=== PATIENT | female | born 1990 | race Caucasian/White ===

== ENCOUNTER 2020-08-23 16:32 | Inpatient (IN) | payer BC ==
[2020-08-23] MEDS ORDERED: Sodium Chloride 0.9% 10 ML Syringe FLUSH PRN (16:39)
[2020-08-23] MEDS ORDERED: Ondansetron 4 MG/2 ML SDV IVPUSH PRN (16:39)
[2020-08-23] MEDS ORDERED: Nalbuphine 10 MG/1 ML Vial IVPUSH PRN (16:39)
[2020-08-23] MEDS ORDERED: Oxytocin/Lactated Ringers 10 UNIT/1,000 ML BAG IV SCH ×2 (16:45)
[2020-08-23] MEDS: Lactated Ringers 1,000 ML IV SCH ×3 (17:40→20:06)
[2020-08-23] MEDS ORDERED: Bupivacaine/fentaNYL/NS 100 ML Bag EPIDUR PRN (18:07)
[2020-08-23] MEDS ORDERED: ePHEDrine 50 MG/ML SDV IVPUSH PRN (18:07)
[2020-08-23] MEDS ORDERED: diphenhydrAMINE 50 MG/ML SDV IVPUSH PRN (18:07)
[2020-08-23] MEDS ORDERED: fentaNYL 100 MCG/2 ML SDV EPIDUR PRN (18:07)
--- NOTE | 2020-08-23 18:18 | PCM.PREANE ---
Preanesthetic Assessment - Procedure Proposed Procedure: Continuous labor epidural - Review of Systems General: No Symptoms Pulmonary: No Symptoms Cardiovascular: No Symptoms Gastrointestinal: No Symptoms Neurological: No Symptoms Other: Reports: None - Physical Assessment Vital Signs: Last Vital Signs Temp 97.4 F 08/23/20 17:53 Pulse 77 08/23/20 17:53 Resp 18 08/23/20 17:53 BP 135/89 08/23/20 17:53 Pulse Ox 98 08/23/20 17:53 Height: 1.65 m Weight: 109.452 kg ASA Class: 2 Mental Status: Alert & Oriented x3 Airway Class: Mallampati = 2 Dentition: Reports: Normal Dentition Thyro-Mental Finger Breadths: 3 Mouth Opening Finger Breadths: 3 ROM/Head Extension: Full Lungs: Clear to Auscultation, Normal Respiratory Effort Cardiovascular: Regular Rate, Regular Rhythm - Lab Values: Laboratory Last Values WBC 14.07 K/mm3 (3.98-10.04) H 08/23/20 17:05 RBC 4.77 M/mm3 (3.98-5.22) 08/23/20 17:05 Hgb 14.0 gm/dl (11.2-15.7) D 08/23/20 17:05 Hct 40.7 % (34.1-44.9) 08/23/20 17:05 MCV 85.3 fl (79.4-94.8) 08/23/20 17:05 MCH 29.4 pg (25.6-32.2) 08/23/20 17:05 MCHC 34.4 g/dl (32.2-35.5) 08/23/20 17:05 RDW Std Deviation 41.6 fL (36.4-46.3) 08/23/20 17:05 Plt Count 181 K/mm3 (182-369) L 08/23/20 17:05 MPV 12.7 fl (9.4-12.3) H 08/23/20 17:05 Neut % (Auto) 76.3 % (34.0-71.1) H 08/23/20 17:05 Lymph % (Auto) 16.9 % (19.3-51.7) L 08/23/20 17:05 [place] % (Auto) 6.5 % (4.7-12.5) 08/23/20 17:05 Eos % (Auto) 0.1 (0.7-5.8) L 08/23/20 17:05 Baso % (Auto) 0.1 % (0.1-1.2) 08/23/20 17:05 Neut # (Auto) 10.72 K/mm3 (1.56-6.13) H 08/23/20 17:05 Lymph # (Auto) 2.38 K/mm3 (1.18-3.74) 08/23/20 17:05 [place] # (Auto) 0.92 K/mm3 (0.24-0.36) H 08/23/20 17:05 Eos # (Auto) 0.01 K/mm3 (0.04-0.36) L 08/23/20 17:05 Baso # (Auto) 0.02 K/mm3 (0.01-0.08) 08/23/20 17:05 POC Glucose 104 mg/dL (70-105) 08/23/20 17:47 - Allergies Allergies/Adverse Reactions: Allergies Allergy/AdvReac Type Severity Reaction Status Date / Time chemical opening machine 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 - HOME MEDS Home Medications: Home Meds Insulin Detemir [Levemir] 14 units SQ BEDTIME 08/23/20 [History] Pnv No.95/Ferrous Fum/Folic AC [ Vitamins Tablet] 1 tab PO DAILY 08/23/20 [History] - CURRENT (IN HOUSE) MEDS Current Meds: Current Medications Diphenhydramine HCl (Benadryl) 25 mg IVPUSH Q6H PRN PRN Reason: pruritis Ephedrine Sulfate (Ephedrine Sulfate) 5 mg IVPUSH ASDIRECTED PRN PRN Reason: Hypotension Fentanyl (Sublimaze) 100 mcg EPIDUR Q3H PRN PRN Reason: Pain Fentanyl/Bupivacaine HCl (Fentanyl/Bupivacaine/Ns 2 Mcg-0.125% 100 Ml) 100 ml EPIDUR ASDIRECTED PRN PRN Reason: Pain Oxytocin/Lactated Ringer's (Pitocin In Lr 10 Units/1,000 Ml) 10 unit in 1,000 mls @ 500 mls/hr IV .CONTINUOUS GIOVANA Oxytocin/Lactated Ringer's (Pitocin In Lr 10 Units/1,000 Ml) 10 unit in 1,000 mls @ 12 mls/hr IV TITRATE GIOVANA; Protocol Lactated Ringer's (Ringers, Lactated) 1,000 mls @ 100 mls/hr IV ASDIRECTED GIOVANA Nalbuphine HCl (Nubain) 10 mg IVPUSH Q2H PRN PRN Reason: Pain Ondansetron HCl (Zofran) 4 mg IVPUSH Q4H PRN PRN Reason: Nausea/Vomiting Sodium Chloride (Saline Flush) 10 ml FLUSH ASDIRECTED PRN PRN Reason: Keep Vein Open
--- NOTE | 2020-08-23 19:27 | PCM.LDHP ---
L&D History of Present Illness - General Date of Service: 08/23/20 Admit Problem/Dx: Patient Status Order with Admit Dx/Problem 08/23/20 16:39 Patient Status [ADT] Routine Admission Diagnosis/Problem Admission Diagnosis/Problem 08/23/20 19:15 Chapis is a 30-year-old 1 para 0 white female admitted on the evening of 08/23/2020 at 40-5/7 weeks gestational age with an KEVIN of 08/18/2020 with S ROM, active labor with advanced cervical dilation. Source of Information: Patient History Limitations: Reports: No Limitations - History of Present Illness Introduction:: Chapis is a 30-year-old 1 para 0 white female admitted on the evening of 08/23/2020 at 40-5/7 weeks gestational age with an KEVIN of 08/18/2020 with SROM, active labor with advanced cervical dilation. She reports having started leaking fluid at approximately 1630 hrs. today. Is continued until the present time. She has started having contractions which are moderate to strong at this time. Cervix on my evaluation shows 5 cm dilation, 100% effaced, 0 station, anterior, clear amniotic fluid, very soft and stretchy. heart tones are generally reassuring. Patient is just received her epidural and is receiving good results from this. 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 Patient had menarche at approximately age 13. Cycles every 30 days. No control at the time of conception. Last menstrual period was 11/09/2019. Her KEVIN is based upon an early ultrasound which correlated very well with her LMP dating. 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 course: Patient was initially seen for this 02/12/2020 at which time she was approximately 13 weeks and 5 days. Ultrasound at that time supported her LMP dating. She was seen on a regular basis throughout the . She was diagnosed with gestational diabetes and initially was attempted to be controlled with diet. She ended up on insulin and has been using Levemir with most recent dosage at 14 units subcu nightly. Blood sugars have been within normal limits. growth has been appropriate. She is not had any major concerns regarding . She has been evaluated with weekly biophysical profiles which have been normal. The patient's weight gain was from a pregravid weight of 245 to a weight of 240.6 pounds at her last visit. Signs have been stable throughout the . Fundal height growth has been appropriate for dates. She is group B strep negative. She plans to breast- feed. She had her flu shot on 06/23/2020. Her Tdap was given on 06/09/2020. She is rubella immune. Hepatitis B immunizations were given in 2003. Ultrasound clinic done on 08/18/2020 showed an estimated weight of 3908 g consistent with 8 pounds 10 ounces. Patient has been informed of this and potential increased risk for shoulder dystocia and need for section. She is interested in proceeding with labor. Allergies: None Medications: 1. Levemir insulin subcutaneous�14 units nightly 2. vitamins daily Past medical history: 1. Infertility with treatment with Humira, Ovidrel shots and evaluation with hysterosalpingogram. Past surgical history: 1. [place] teeth removal. Family history: Mother is secondary to complications of throat cancer. Diagnosis at age 50, at age 60. Father is secondary to H2 gas accident exposure. Sisters alive and well. Maternal grandmother is secondary to cervical cancer at age 70. Maternal grandfather is secondary to lung cancer. Paternal grandmother is secondary to heart disease at age 90 with a history of breast cancer also. Paternal grandfather from lung cancer at age 80. There is no known family history of bleeding or clotting disorders, anesthesia related issues or related problems. One paternal aunt did have breast cancer at 50 years of age plus. Social history: Patient is . is Cuong Walker. He works in [employer] at the [employer] as a [employer]. She works at [employer] here in [place], [place]. She denies any significant muscle alcohol, drugs or tobacco. She and her live in [place]. Review of systems: In general patient has no complaints. She does report leaking fluid consistent with SROM. Baby has been active. And she has having some contractions. Skin: Negative Lungs: No infectious symptoms or shortness of breath Cardiovascular: No chest pain or exercise intolerance Breasts: No lumps, changes in size, pain, dimpling, discharge or axillary or supraclavicular concerns. Changes associated with . GI: Negative : Body habitus changes consistent with . Musculoskeletal: Negative Neurological: Negative Physical exam: In general the patient is well-developed, well-nourished, pleasant female of stated age in no acute distress. Evaluation in clinic on 08/18/2020 showed her blood pressure was 118/72. Weight was 240.6 with pregravid weight of 245 pounds. Pregravid BMI was 40.8. Height is 5 feet 5 inches. heart rate is 180 bpm. Cervix at that time was 3+ centimeters, 90% effaced, mid position, -2 station and soft. Skin is warm dry without lesions. HEENT, neck and back within normal limits. Lungs are clear with good breath sounds in all lung bass. Cardiovascular exam shows regular and rhythm without murmurs. Breast exam was performed first visit and not repeated at this time. Abdomen is gravid with last fundal height at 40+ centimeters. Baby in vertex presentation.. Genital per digital evaluation as described above. Extremities and neurological exam are grossly within normal limits. 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 Social & Family History - Family History Family Medical History: No Pertinent Family History - Caffeine Use Caffeine Use: Reports: None - Recreational Drug Use Recreational Drug Use: No H&P Review of Systems - Review of Systems: Review Of Systems: See Below L&D Exam - Exam Exam: See Below - Vital Signs Vital Signs: Last Vital Signs Temp 36.3 C 08/23/20 17:53 Pulse 77 08/23/20 17:53 Resp 18 08/23/20 17:53 BP 135/89 08/23/20 17:53 Pulse Ox 98 08/23/20 17:53 Weight: 109.452 kg - Patient Data Lab Results Last 24 hrs: Laboratory Results - last 24 hr 08/23/20 08/23/20 08/23/20 Range/Units 17:05 17:05 17:15 WBC 14.07 H (3.98-10.04) K/mm3 RBC 4.77 (3.98-5.22) M/mm3 Hgb 14.0 D (11.2-15.7) gm/dl Hct 40.7 (34.1-44.9) % MCV 85.3 (79.4-94.8) fl MCH 29.4 (25.6-32.2) pg MCHC 34.4 (32.2-35.5) g/dl RDW Std Deviation 41.6 (36.4-46.3) fL Plt Count 181 L (182-369) K/mm3 MPV 12.7 H (9.4-12.3) fl Neut % (Auto) 76.3 H (34.0-71.1) % Lymph % (Auto) 16.9 L (19.3-51.7) % [place] % (Auto) 6.5 (4.7-12.5) % Eos % (Auto) 0.1 L (0.7-5.8) Baso % (Auto) 0.1 (0.1-1.2) % Neut # (Auto) 10.72 H (1.56-6.13) K/mm3 Lymph # (Auto) 2.38 (1.18-3.74) K/mm3 [place] # (Auto) 0.92 H (0.24-0.36) K/mm3 Eos # (Auto) 0.01 L (0.04-0.36) K/mm3 Baso # (Auto) 0.02 (0.01-0.08) K/mm3 POC Glucose (70-105) mg/dL RPR Non-reactive (NONREACTIVE) SARS-CoV-2 RNA (CESAR) Negative (NEGATIVE) 08/23/20 Range/Units 17:47 WBC (3.98-10.04) K/mm3 RBC (3.98-5.22) M/mm3 Hgb (11.2-15.7) gm/dl Hct (34.1-44.9) % MCV (79.4-94.8) fl MCH (25.6-32.2) pg MCHC (32.2-35.5) g/dl RDW Std Deviation (36.4-46.3) fL Plt Count (182-369) K/mm3 MPV (9.4-12.3) fl Neut % (Auto) (34.0-71.1) % Lymph % (Auto) (19.3-51.7) % [place] % (Auto) (4.7-12.5) % Eos % (Auto) (0.7-5.8) Baso % (Auto) (0.1-1.2) % Neut # (Auto) (1.56-6.13) K/mm3 Lymph # (Auto) (1.18-3.74) K/mm3 [place] # (Auto) (0.24-0.36) K/mm3 Eos # (Auto) (0.04-0.36) K/mm3 Baso # (Auto) (0.01-0.08) K/mm3 POC Glucose 104 (70-105) mg/dL RPR (NONREACTIVE) SARS-CoV-2 RNA (CESAR) (NEGATIVE) Result Diagrams: 08/23/20 17:05 Problem List Initiated/Reviewed/Updated: Yes Orders Last 24hrs: Active Orders 24 hr Category Date Time Status Patient Status [ADT] Routine ADT 08/23/20 16:39 Active Activity as Tolerated [RC] PFP Care 08/23/20 16:39 Active Communication Order [RC] ASDIRECTED Care 08/23/20 16:39 Active Heart Tones [RC] ASDIRECTED Care 08/23/20 16:39 Active Non Stress Test [RC] PER UNIT ROUTINE Care 08/23/20 16:39 Active Notify Provider [RC] ASDIRECTED Care 08/23/20 18:07 Active Notify Provider [RC] PFP Care 08/23/20 16:39 Active Notify Provider [RC] PRN Care 08/23/20 16:39 Active Peripheral IV Care [RC] . DIRECTED Care 08/23/20 16:39 Active Pump Management, Intrathecal [RC] ASDIRECTED Care 08/23/20 16:40 Active Urinary Catheter Assessment [RC] ASDIRECTED Care 08/23/20 16:39 Active Vital Signs [RC] 03,09,15,21 Care 08/23/20 16:39 Active Regular Diet [DIET] Diet 08/23/20 Dinner Active Bupivacaine/fentaNYL/NS [fentaNYL/Bupivacaine/NS 2 MCG- Med 08/23/20 18:07 Active 0.125% 100 ML] 100 ml EPIDUR ASDIRECTED PRN Lactated Ringers [Ringers, Lactated] 1,000 ml Med 08/23/20 16:45 Active IV ASDIRECTED Nalbuphine [Nubain] Med 08/23/20 16:39 Active 10 mg IVPUSH Q2H PRN Ondansetron [Zofran] Med 08/23/20 16:39 Active 4 mg IVPUSH Q4H PRN Oxytocin/Lactated Ringers [Pitocin in LR 10 Units/1,000 Med 08/23/20 16:45 Active ML] 10 unit in 1,000 ml IV .CONTINUOUS Oxytocin/Lactated Ringers [Pitocin in LR 10 Units/1,000 Med 08/23/20 16:45 Active ML] 10 unit in 1,000 ml IV TITRATE Sodium Chloride 0.9% [Saline Flush] Med 08/23/20 16:39 Active 10 ml FLUSH ASDIRECTED PRN diphenhydrAMINE [Benadryl] Med 08/23/20 18:07 Active 25 mg IVPUSH Q6H PRN ePHEDrine [ePHEDrine sulfate] Med 08/23/20 18:07 Active 5 mg IVPUSH ASDIRECTED PRN fentaNYL [Sublimaze] Med 08/23/20 18:07 Active 100 mcg EPIDUR Q3H PRN Electronic Heart Tones Ext w TOCO [WOMSER] Oth 08/23/20 16:39 Ordered Routine Electronic Heart Tones Internal [WOMSER] Per Unit Oth 08/23/20 16:39 Ordered Routine Peripheral IV Insertion Adult [OM.PC] Routine Oth 08/23/20 16:39 Ordered Resuscitation Status Routine Resus Stat 08/23/20 16:39 Ordered Medication Orders Diphenhydramine HCl (Benadryl) 25 mg IVPUSH Q6H PRN PRN Reason: pruritis Ephedrine Sulfate (Ephedrine Sulfate) 5 mg IVPUSH ASDIRECTED PRN PRN Reason: Hypotension Fentanyl (Sublimaze) 100 mcg EPIDUR Q3H PRN PRN Reason: Pain Last Admin: 08/23/20 18:22 Dose: 100 mcg Documented by: LADARIUS Fentanyl/Bupivacaine HCl (Fentanyl/Bupivacaine/Ns 2 Mcg-0.125% 100 Ml) 100 ml EPIDUR ASDIRECTED PRN PRN Reason: Pain Last Admin: 08/23/20 18:22 Dose: 100 ml Documented by: LADARIUS Oxytocin/Lactated Ringer's (Pitocin In Lr 10 Units/1,000 Ml) 10 unit in 1,000 mls @ 500 mls/hr IV .CONTINUOUS GIOVANA Oxytocin/Lactated Ringer's (Pitocin In Lr 10 Units/1,000 Ml) 10 unit in 1,000 mls @ 12 mls/hr IV TITRATE GIOVANA; Protocol Lactated Ringer's (Ringers, Lactated) 1,000 mls @ 100 mls/hr IV ASDIRECTED GIOVANA Last Admin: 08/23/20 18:25 Dose: 999 mls/hr Documented by: Infusion: 08/23/20 18:25 Dose: 999 mls/hr Documented by: Admin: 08/23/20 17:40 Dose: 999 mls/hr Documented by: LADARIUS Nalbuphine HCl (Nubain) 10 mg IVPUSH Q2H PRN PRN Reason: Pain Ondansetron HCl (Zofran) 4 mg IVPUSH Q4H PRN PRN Reason: Nausea/Vomiting Sodium Chloride (Saline Flush) 10 ml FLUSH ASDIRECTED PRN PRN Reason: Keep Vein Open Assessment/Plan Comment:: 1. 40-5/7-week intrauterine , SROM, clear amniotic fluid, active labor with advanced cervical dilation 2. Gestational diabetes mellitus with blood sugars well controlled on subcu insulin. Patient's weight management in has been excellent. testing with weekly biophysical profiles have been normal. 3. Group B strep screen negative. 4. Other risk factors include obesity. 5. Patient has had an epidural placed for labor analgesia 6. Patient has had her flu shot and her Tdap immunization. She has had a hepatitis B immunizations also. She is rubella immune. 7. Patient plans to breast-feed. Plan: 1. Anticipate normal spontaneous vaginal delivery 2. Admission labs have included Covid�19 testing, CBC, RPR. 3. Support breast-feeding plan 4. Epidural for labor analgesia 5. Routine labor care. Patient is aware of her increased risk for shoulder dystocia and for having need for section
[2020-08-24] MEDS ORDERED: Lidocaine 1.5% with EPINEPHrine 1:200,000 5 ML Amp ONE
--- NOTE | 2020-08-24 00:59 | PCM.SN.2 ---
- Free Text/Narrative Note: Delivery note: Chapis is a 30-year-old 1 now para 1-0-0-1 white female admitted on the evening of 08/23/2020 at 40-5/7 weeks gestational age with an KEVIN of 08/18/2020 with SROM, active labor with advanced cervical dilation. She reported having started leaking fluid at approximately 1630 hrs. on 08/23/2020. She started having contractions which are moderate to strong at this time. Cervix on my evaluation on admission showed 5 cm dilation, 100% effaced, 0 station, anterior, clear amniotic fluid, very soft and stretchy. heart tones were generally reassuring. Patient received epidural for labor analgesia. She progressed rapidly to complete cervical dilation by approximately 2100 hrs. She pushed for approximately 3 hours and I am minutes. At that time discussion was held with patient as to assistance with vacuum extraction, its risks, benefits, alternatives of care including continued pushing, section. She appeared to understand the risk and benefits and wished to proceed with VAC extraction as she was becoming fatigued. Vacuum extractor was applied and over the course of 2 contractions baby delivered without concerns. Shoulders delivered without any problems with gentle downward traction. The baby was a female delivered at 0016 hours on 08/24/2020 in a direct occiput anterior position. She weighed 3770 g (8 pounds 5.0 ounces), had Apgars of 8 and 9 and was 21.0 inches in length. Baby was then placed on mom's abdomen and dried with warm blanket. Nose and mouth were bulb suction. Pitocin was started at 500 cc an hour to facilitate increase in uterine tone and decrease likelihood of bleeding. The umbilical cord was allowed to pulsate for 2 to 3 minutes. The umbilical cord was clamped x2 and then cut by the baby's father Cuong. Cord blood was obtained. The umbilical cord had 3 vessels. The perineum was inspected and found to have a third-degree laceration. The epithelium of the lower perineal body was reapproximated with 3 continuous vertical mattress sutures of 3-0 Monocryl. The anal sphincter was then identified with the chin brought to the midline with Allis clamps. A [id number] suture was placed into the sphincter muscle to reapproximate it midline. The capsule was then oversewn around this with interrupted sutures x2 again using 3-0 Monocryl. The remainder of the laceration was repaired in a routine episiotomy fashion. No fourth degree laceration was noted. Minimal bleeding was encountered. The placenta delivered spontaneously at 0029 hours in a [place] presentation. There was a marginal insertion of the umbilical cord. It appeared to deliver intact and complete and was discarded per patient desire. Patient plans to breast-feed. Estimated blood loss was 200 cc. Condition: Good.
[2020-08-24] MEDS ORDERED: Benzocaine/Menthol 20%-0.5% Spray 56 GM Canister TOP PRN (01:08)
[2020-08-24] MEDS ORDERED: Acetaminophen 325 MG Tab PO PRN (01:08)
[2020-08-24] MEDS: Witch Hazel Medicated Pads 40/Jar TOP PRN ×2 (01:30→20:12)
[2020-08-24] MEDS: Ibuprofen 600 MG Tab PO PRN ×3 (02:12→20:03)
--- NOTE | 2020-08-24 07:57 | PCM.SN.2 ---
- Free Text/Narrative Note: note: Patient is doing well in the period. Minimal lochia, voiding well, ambulated without problems. Nursing without concerns. Patient is afebrile, vital signs are stable Abdomen is flat, soft, uterus is below the umbilicus and is firm and nontender. Legs are nontender. Assessment: recovery going well. Plan: Routine care. Patient be discharged home within the next 24-48 hours.
[2020-08-24] MEDS: Prenatal Multivitamin with Calcium/Folic Acid/Iron Tab PO SCH (09:52)
[2020-08-24] MEDS: Docusate Sodium 100 MG Cap PO SCH ×2 (09:52→22:15)
--- NOTE | 2020-08-24 16:42 | PCM48HPAN ---
Post Anesthesia Note - EVALUATION WITHIN 48HRS OF ANESTHETIC Vital Signs in Normal Range: Yes Patient Participated in Evaluation: Yes Respiratory Function Stable: Yes Airway Patent: Yes Cardiovascular Function Stable: Yes Hydration Status Stable: Yes Pain Control Satisfactory: Yes Nausea and Vomiting Control Satisfactory: Yes Mental Status Recovered: Yes Vital Signs: Last Vital Signs Temp 97.7 F 08/24/20 09:34 Pulse 87 08/24/20 09:34 Resp 15 08/24/20 09:34 BP 95/54 L 08/24/20 09:34 Pulse Ox 100 08/24/20 09:34 - COMMENTS/OBSERVATIONS Free Text/Narrative:: Patient is on her day 1. Stated understanding about possible backaches following epidural anesthesia. Reports minimal back soreness at this time. Explanation given about importance of avoiding back straining. Denies any headache or lightheadedness at this time. Comfortable now. Ambulating, no difficulty urinating.
[2020-08-25] MEDS: Ibuprofen 600 MG Tab PO PRN ×3 (04:45→14:25)
[2020-08-25 04:56] VITALS: PULSE 73
[2020-08-25] MEDS: Docusate Sodium 100 MG Cap PO SCH (09:50)
[2020-08-25] MEDS: Prenatal Multivitamin with Calcium/Folic Acid/Iron Tab PO SCH (09:50)
--- NOTE | 2020-08-25 10:05 | PCM.DCSUM1 ---
Discharge Summary - Hospital Course Free Text/Narrative:: Chapis is a 30-year-old 1 now para 1-0-0-1 white female admitted on the evening of 08/23/2020 at 40-5/7 weeks gestational age with an KEVIN of 08/18/2020 with SROM, active labor with advanced cervical dilation. She reported having started leaking fluid at approximately 1630 hrs. on 08/23/2020. She started having contractions which are moderate to strong at this time. Cervix on my evaluation on admission showed 5 cm dilation, 100% effaced, 0 station, anterior, clear amniotic fluid, very soft and stretchy. heart tones were generally reassuring. Patient received epidural for labor analgesia. She progressed rapidly to complete cervical dilation by approximately 2100 hrs. She pushed for approximately 3 hours and I am minutes. At that time discussion was held with patient as to assistance with vacuum extraction, its risks, benefits, alternatives of care including continued pushing, section. She appeared to understand the risk and benefits and wished to proceed with VAC extraction as she was becoming fatigued. Vacuum extractor was applied and over the course of 2 contractions baby delivered without concerns. Shoulders delivered without any problems with gentle downward traction. The baby was a female delivered at 0016 hours on 08/24/2020 in a direct occiput anterior position. She weighed 3770 g (8 pounds 5.0 ounces), had Apgars of 8 and 9 and was 21.0 inches in length. Baby was then placed on mom's abdomen and dried with warm blanket. Nose and mouth were bulb suction. Pitocin was started at 500 cc an hour to facilitate increase in uterine tone and decrease likelihood of bleeding. The umbilical cord was allowed to pulsate for 2 to 3 minutes. The umbilical cord was clamped x2 and then cut by the baby's father Cuong. Cord blood was obtained. The umbilical cord had 3 vessels. The perineum was inspected and found to have a third-degree laceration. The epithelium of the lower perineal body was reapproximated with 3 continuous vertical mattress sutures of 3-0 Monocryl. The anal sphincter was then identified with the chin brought to the midline with Allis clamps. A [id number] suture was placed into the sphincter muscle to reapproximate it midline. The capsule was then oversewn around this with interrupted sutures x2 again using 3-0 Monocryl. The remainder of the laceration was repaired in a routine episiotomy fashion. No fourth degree laceration was noted. Minimal bleeding was encountered. The placenta delivered spontaneously at 0029 hours in a [place] presentation. There was a marginal insertion of the umbilical cord. It appeared to deliver intact and complete and was discarded per patient desire. Patient plans to breast-feed. Estimated blood loss was 200 cc. patient is done well. She is ambulating well, has minimal lochia. She is voiding without concerns. Breast-feeding is going well. She is desiring discharge home. blood sugars have not been obtained. Condition: Good. Diagnosis: Stroke: No - Discharge Data Discharge Date: 08/25/20 Discharge Disposition: Home, Self-Care 01 Condition: Good - Referral to Home Health Primary Care Physician: Amarilys Heredia NP - Patient Instructions Diet: Regular Diet as Tolerated (Nursing diet with increased calcium and calories as directed) Activity: As Tolerated (No intercourse or tampons until bleeding resolves) Driving: May Drive Today Showering/Bathing: May Shower Showering/Bathing, Other: May take a bath Notify Provider of: Fever, Increased Pain, Swelling and Redness, Nausea and/or Vomiting - Discharge Plan Home Medications: Home Meds Pnv No.95/Ferrous Fum/Folic AC [ Vitamins Tablet] 1 tab PO DAILY 08/23 [History] Acetaminophen [Tylenol] 650 mg PO Q4H PRN tablet 08/25/20 [Rx] Ibuprofen [Motrin] 600 mg PO Q4H PRN tablet 08/25/20 [Rx] silver Medrano [Tucks] 1 pad TOP ASDIRECTED PRN pad 08/25/20 [Rx] Patient Handouts: Breast Pumping Tips, and Self-Care, Care of a Perineal Tear, Care After Vaginal Delivery Referrals: Da Buck MD [Physician] - (Return to clinic�DrKiran Buck�2 to 3 weeks.) - Discharge Summary/Plan Comment DC Time >30 min.: No Discharge Summary/Plan Comment: Discharge instructions: 1. Discharge home 2. Diet, activity and follow-up discussed with patient. Recommend nursing diet with increased calories and calcium. 3. Precautions given concern increased pain, bleeding, temperature, signs/symptoms of DVT/PE. 4. Medications per home medication was printed, discussed with and given to the patient. 5. Return to clinic-[facility] in 2 weeks. Diagnosis: 1. Term -delivered 2. Gestational diabetes Condition: Good - Patient Data Vitals - Most Recent: Last Vital Signs Temp 36.5 C 08/25/20 04:36 Pulse 73 08/25/20 04:36 Resp 14 08/25/20 04:36 BP 116/61 08/25/20 04:36 Pulse Ox 97 08/25/20 04:36 Weight - Most Recent: 109.452 kg I&O - Last 24 hours: Intake & Output 08/24/20 08/25/20 08/25/20 22:59 06:59 14:59 Intake Total 0 Balance 0 Lab Results - Last 24 hrs: Laboratory Results - last 24 hr 08/24/20 Range/Units 09:30 MRSA (PCR) Negative Med Orders - Current: Current Medications Acetaminophen (Tylenol) 650 mg PO Q4H PRN PRN Reason: mild pain or fever Benzocaine/Menthol (Dermoplast Pain Relief [place]) 0 gm TOP ASDIRECTED PRN PRN Reason: Perineal Comfort Measure Last Admin: 08/24/20 01:30 Dose: 1 applic Documented by: Docusate Sodium (Colace) 100 mg PO BID [facility] Last Admin: 08/25/20 09:50 Dose: 100 mg Documented by: Ibuprofen (Motrin) 600 mg PO Q4H PRN PRN Reason: Mild pain or fever Last Admin: 08/25/20 09:30 Dose: 600 mg Documented by: Prenat Multivit/[place]/Iron/Folic Ac ( Plus Iron) 1 each PO DAILY [facility] Last Admin: 08/25/20 09:50 Dose: 1 each Documented by: Silver Medrano ([facility]) 1 pad TOP ASDIRECTED PRN PRN Reason: Perineal Comfort Measure Last Admin: 08/24/20 20:12 Dose: 1 container Documented by: Discontinued Medications Diphenhydramine HCl (Benadryl) 25 mg IVPUSH Q6H PRN PRN Reason: pruritis Ephedrine Sulfate (Ephedrine Sulfate) 5 mg IVPUSH ASDIRECTED PRN PRN Reason: Hypotension Fentanyl (Sublimaze) 100 mcg EPIDUR Q3H PRN PRN Reason: Pain Last Admin: 08/23/20 18:22 Dose: 100 mcg Documented by: Fentanyl/Bupivacaine HCl (Fentanyl/Bupivacaine/Ns 2 Mcg-0.125% 100 Ml) 100 ml EPIDUR ASDIRECTED PRN PRN Reason: Pain Last Admin: 08/23/20 18:22 Dose: 100 ml Documented by: Oxytocin/Lactated Ringer's (Pitocin In Lr 10 Units/1,000 Ml) 10 unit in 1,000 mls @ 500 mls/hr IV .CONTINUOUS GIOVANA Last Admin: 08/24/20 00:17 Dose: 500 mls/hr Documented by: Oxytocin/Lactated Ringer's (Pitocin In Lr 10 Units/1,000 Ml) 10 unit in 1,000 mls @ 12 mls/hr IV TITRATE GIOVANA; Protocol Lactated Ringer's (Ringers, Lactated) 1,000 mls @ 100 mls/hr IV ASDIRECTED GIOVANA Last Admin: 08/23/20 20:06 Dose: 100 mls/hr Documented by: Lidocaine/Epinephrine (Xylocaine-Mpf 1.5% W/Epinephrine 1:200,000) 5 ml .ROUTE .[facility] [place] ONE Stop: 08/24/20 00:01 Nalbuphine HCl (Nubain) 10 mg IVPUSH Q2H PRN PRN Reason: Pain Ondansetron HCl (Zofran) 4 mg IVPUSH Q4H PRN PRN Reason: Nausea/Vomiting Sodium Chloride (Saline Flush) 10 ml FLUSH ASDIRECTED PRN PRN Reason: Keep Vein Open
[2020-08-25 10:11] VITALS: BP 117/61
== END 2020-08-25 14:45 | disposition home or self-care (01) | DRG 542 ==
LOC: JD.OBCHECK 16:32 → JD.OB 16:38 → JD.OBCHECK 16:39 → JD.OB 16:39 → OBSVTOIN 08-24 00:16 → JD.OB 08-24 00:17
PROVIDERS: ADMIT Obstetrics & Gynecology; ATTEND Obstetrics & Gynecology
PROC: 10E0XZZ Delivery of Products of Conception, External Approach (ICD-10-PCS; principal; 2020-08-24)
PROC: 0DQR0ZZ Repair Anal Sphincter, Open Approach (ICD-10-PCS; 2020-08-24)
PROC: 3E0R3BZ Introduction of Anesthetic Agent into Spinal Canal, Percutaneous Approach (ICD-10-PCS; 2020-08-24)
DX: O48.0 Post-term pregnancy (principal); Z3A.40 40 weeks gestation of pregnancy; Z37.0 Single live birth; O70.20 Third degree perineal laceration during delivery, unspecified; Z20.828 Contact with and (suspected) exposure to other viral communicable diseases
CPT/HCPCS: 01967; 36415; 51701; 51702; 59025; 59409; 82962; 85025; 86592; 87070; 87641; A9270-GY; J2590; J3010; J7120; U0002

== ENCOUNTER 2022-06-27 13:25 | Inpatient (IN) | payer BC ==
[~2022-06-27 13:25] MED LIST: Bupivacaine 0.25% 10 ML SDV EPIDUR ONE; Ibuprofen 600 MG Tab PO ONE; Lactated Ringers 1,000 ML IV ONE; Lactated Ringers 1,000 ML ONE; Lidocaine 1% 10 ML MDV INJECT ONE; Oxytocin/Lactated Ringers 10 UNIT/1,000 ML BAG IV ONE
[2022-06-27] MEDS ORDERED: Lactated Ringers 1,000 ML ONE ×3 (13:38→16:06)
[2022-06-27] MEDS ORDERED: fentaNYL 100 MCG/2 ML SDV ONE (13:38)
[2022-06-27] MEDS ORDERED: Bupivacaine/fentaNYL/NS 100 ML Bag ONE (13:39)
[2022-06-27] MEDS ORDERED: Acetaminophen 325 MG Tab ONE (22:10)
[2022-06-27] MEDS ORDERED: Docusate Sodium 100 MG Cap ONE (22:11)
[2022-06-28] MEDS ORDERED: Ibuprofen 600 MG Tab ONE ×2 (02:08→13:58)
[2022-06-28] MEDS ORDERED: Acetaminophen 325 MG Tab ONE (07:36)
[2022-06-28] MEDS ORDERED: Prenatal Multivitamin with Calcium/Folic Acid/Iron Tab ONE (07:37)
[2022-06-28] MEDS ORDERED: Docusate Sodium 100 MG Cap ONE (07:38)
[2022-06-28] MEDS ORDERED: Benzocaine/Menthol 20%-0.5% Spray 78 GM Cannister TOP PRN (16:05)
[2022-06-28] MEDS ORDERED: Witch Hazel Medicated Pads 40/Jar TOP PRN (16:05)
[2022-06-28] MEDS ORDERED: Hydrocortisone Acetate 25 MG Supp RECTAL PRN (16:05)
[2022-06-28] MEDS ORDERED: Acetaminophen 325 MG Tab PO PRN (16:05)
[2022-06-28] MEDS ORDERED: Magnesium Hydroxide 400 MG/5 ML Susp 30 ML Cup PO PRN (16:05)
[2022-06-28] MEDS ORDERED: Ibuprofen 600 MG Tab PO PRN (18:00)
[2022-06-28] MEDS: Docusate Sodium 100 MG Cap PO SCH (20:23)
[2022-06-28 22:37] VITALS: PULSE 72
[2022-06-29] MEDS ORDERED: Prenatal Multivitamin with Calcium/Folic Acid/Iron Tab PO SCH (09:00)
[2022-06-29] MEDS: Docusate Sodium 100 MG Cap PO SCH (10:38)
[2022-06-29 12:15] VITALS: BP 122/56
== END 2022-06-29 12:35 | disposition home or self-care (01) | DRG 560 ==
LOC: JD.OB 13:25
PROVIDERS: ADMIT Obstetrics & Gynecology; ATTEND Obstetrics & Gynecology
PROC: 10E0XZZ Delivery of Products of Conception, External Approach (ICD-10-PCS; principal; 2022-06-27)
PROC: 10907ZC Drainage of Amniotic Fluid, Therapeutic from Products of Conception, Via Natural or Artificial Opening (ICD-10-PCS; principal; 2022-06-27)
DX: O24.424 Gestational diabetes mellitus in childbirth, insulin controlled (principal); O69.81X0 Labor and delivery complicated by cord around neck, without compression, not applicable or unspecified; Z3A.39 39 weeks gestation of pregnancy; Z37.0 Single live birth; O76 Abnormality in fetal heart rate and rhythm complicating labor and delivery
CPT/HCPCS: 01967; 36415; 51702; 59025; 59409; 82947; 85027; 86592; A9270-GY; J2590; J3010; J3490; J7120